=== PATIENT | male | born 1970 | race Caucasian/White ===

== ENCOUNTER 2016-08-26 16:22 | Inpatient (IN) | payer OTHER ==
[2016-08-26 20:05] VITALS: BP 159/88
[2016-08-26 23:20] VITALS: BP 147/87
[2016-08-27 02:43] VITALS: BP 123/71
[2016-08-27 06:30] VITALS: BP 131/78
[2016-08-27 11:29] VITALS: BP 130/82
[2016-08-27 15:01] VITALS: BP 138/88
[2016-08-27 18:48] VITALS: BP 136/78
[2016-08-27 23:00] VITALS: BP 145/93
[2016-08-28 02:56] VITALS: BP 155/94
[2016-08-28 06:22] VITALS: BP 139/83
[2016-08-28] MEDS ORDERED: CIPRO500 M1 PO (08:43)
[2016-08-28] MEDS ORDERED: IBUPROFEN800 MG PO (08:44)
[2016-08-28] MEDS ORDERED: ATIVAN0.5 MG PO (08:45)
[2016-08-28] MEDS ORDERED: ZOFRAN ODT8 M1 PO (08:48)
== END 2016-08-28 09:55 | disposition home or self-care (01) | DRG 440 ==
LOC: ED 16:22 → MED/SURG 19:13
PROVIDERS: ADMIT Nurse Practitioner Family
DX: K85.20 Alcohol induced acute pancreatitis without necrosis or infection (principal); K76.0 Fatty (change of) liver, not elsewhere classified; N28.9 Disorder of kidney and ureter, unspecified; F10.10 Alcohol abuse, uncomplicated; R45.1 Restlessness and agitation; I10 Essential (primary) hypertension; K59.00 Constipation, unspecified
CPT/HCPCS: C9113; J0744; J1650; J1885; J2270; J3010; J3411; J7030; Q9967

== ENCOUNTER → 2016-09-01 | Outpatient (CLI) | payer OTHER ==
[~2016-09-01] MED LIST: ATIVAN0.5 MG PO; CIPRO500 M1 PO; IBUPROFEN800 MG PO; ZOFRAN ODT8 M1 PO
== END ==
LOC: LAB 09:30
DX: K85.20 Alcohol induced acute pancreatitis without necrosis or infection (principal)

== ENCOUNTER → 2017-07-02 | Outpatient (CLI) | payer OTHER ==
[2017-07-02 15:27] LABS: HEMATOCRIT 41.2 % (42.0-52.0); HEMOGLOBIN 14.7 g/dL (13.5-18.0); MEAN CELL VOLUME 96 fl (78-100); MEAN CORPUSCULAR HEMOGLOBIN 34 pg (27-31); MEAN CORPUSCULAR HGB CONC 36 g/dL (33-37); MEAN PLATELET VOLUME 9.9 fl (7.4-10.4); PLATELET COUNT 206 K/mm3 (130-400); RED BLOOD COUNT 4.29 M/mm3 (4.20-5.60); RED CELL DISTRIBUTION WIDTH 12.8 % (11.5-14.5); WHITE BLOOD COUNT 11.1 K/mm3 (4.8-10.8)
[2017-07-02 15:53] LABS: BAND 1 % (0-10); LYMPHOCYTE 13 % (20-51); MONOCYTE 3 % (3-10); NEUTROPHILS 82 % (42-75)
[2017-07-02 17:02] LABS: ERYTHROCYTE SEDIMENTATION RATE 25 mm/hr (0-15)
== END ==
LOC: LAB 14:23
PROVIDERS: Nurse Practitioner Family
DX: M25.521 Pain in right elbow (principal); R22.31 Localized swelling, mass and lump, right upper limb

== ENCOUNTER → 2020-11-27 | Outpatient (CLI) | payer BC ==
[~2020-11-27] MED LIST changes: +ALLOPURINOL300 M1 PO; +DICLOFENAC SOD100 M1 PO; +OMEPRAZOLE40 MG PO
[2020-11-27 18:07] LABS: EOS # 0.1 (0.04-0.40); HEMOGLOBIN 15.1 g/dL (13.5-18.0); LYMPH# 1.2 (1.50-4.00); MEAN CELL VOLUME 97 fl (78-100); MEAN CORPUSCULAR HEMOGLOBIN 33 pg (27-31); MEAN CORPUSCULAR HGB CONC 34 g/dL (33-37); MEAN PLATELET VOLUME 9.2 fl (7.4-10.4); MONO # 0.8 (0.20-0.80); NEU # 5.2 (1.40-6.50); PLATELET COUNT 247 K/mm3 (130-400); RED BLOOD COUNT 4.52 M/mm3 (4.20-5.60); RED CELL DISTRIBUTION WIDTH 12.3 % (11.5-14.5); WHITE BLOOD COUNT 7.3 K/mm3 (4.8-10.8)
[2020-11-27 18:11] LABS: ALBUMIN 4.1 g/dL (3.5-5.0); POTASSIUM 4.3 mmol/L (3.5-5.1)
[2020-11-27 18:12] LABS: CALCIUM 9.9 mg/dL (8.3-10.5)
[2020-11-27 18:14] LABS: TOTAL PROTEIN 7.8 g/dL (6.4-8.3)
[2020-11-27 18:16] LABS: TOTAL BILIRUBIN 0.9 mg/dL (0.2-1.2)
[2020-11-27 19:55] LABS: ERYTHROCYTE SEDIMENTATION RATE 50 mm/hr (0-15)
== END ==
LOC: LAB 16:33
PROVIDERS: Internal Medicine
DX: Z00.00 Encounter for general adult medical examination without abnormal findings (principal)

== ENCOUNTER → 2020-11-30 | Outpatient (CLI) | payer BC ==
[2020-12-03 13:35] LABS: ANA SCREEN with REFLEX Negative (Negative)
[2020-12-04 01:17] LABS: ANTI-CYC CITRULLINATED PEPT AB <20.0 CU (0.0-19.9)
== END ==
LOC: LAB 12:33
PROVIDERS: Internal Medicine
DX: M65.9 Synovitis and tenosynovitis, unspecified (principal); N28.9 Disorder of kidney and ureter, unspecified

== ENCOUNTER → 2020-12-03 | Outpatient (CLI) | payer BC | LOC: RAD 08:23 | DX: M65.9 Synovitis and tenosynovitis, unspecified (principal); N28.1 Cyst of kidney, acquired ==

== ENCOUNTER → 2021-01-17 | Outpatient (CLI) | payer BC | LOC: LAB 12:23 | DX: R97.8 Other abnormal tumor markers (principal); M65.9 Synovitis and tenosynovitis, unspecified ==

== ENCOUNTER 2021-01-20 21:30 | Inpatient (IN) | payer BC ==
[~2021-01-20 21:30] MED LIST changes: -ALLOPURINOL300 M1 PO; -DICLOFENAC SOD100 M1 PO; -OMEPRAZOLE40 MG PO
[2021-01-20 22:21] LABS: BASO # 0.03 (0.02-0.10); EOS # 0.01 (0.04-0.40); EOS % 0.1 % (0.0-4.0); HEMATOCRIT 41.8 % (42.0-52.0); HEMOGLOBIN 15.1 g/dL (13.5-18.0); LYMPH# 0.64 (1.50-4.00); MEAN CELL VOLUME 92 fl (78-100); MEAN CORPUSCULAR HEMOGLOBIN 33 pg (27-31); MEAN CORPUSCULAR HGB CONC 36 g/dL (33-37); MEAN PLATELET VOLUME 8.4 fl (7.4-10.4); MONO # 0.65 (0.20-0.80); NEU # 7.83 (1.40-6.50); PLATELET COUNT 168 K/mm3 (130-400); RED BLOOD COUNT 4.56 M/mm3 (4.20-5.60); RED CELL DISTRIBUTION WIDTH 11.8 % (11.5-14.5); WHITE BLOOD COUNT 9.2 K/mm3 (4.8-10.8)
[2021-01-20 22:29] LABS: ALBUMIN 4.3 g/dL (3.5-5.0)
[2021-01-20 22:30] LABS: POTASSIUM 4.9 mmol/L (3.5-5.1)
[2021-01-20 22:31] LABS: CALCIUM 9.6 mg/dL (8.3-10.5)
[2021-01-20 22:32] LABS: TOTAL PROTEIN 7.5 g/dL (6.4-8.3)
[2021-01-20 22:34] LABS: TOTAL BILIRUBIN 1.1 mg/dL (0.2-1.2)
[2021-01-20] MEDS ORDERED: DICLOFENAC SOD100 M1 PO (23:10)
[2021-01-20] MEDS ORDERED: ALLOPURINOL300 M1 PO (23:10)
[2021-01-20] MEDS ORDERED: OMEPRAZOLE40 MG PO (23:11)
[2021-01-21] VITALS (7 sets, daily range): BP systolic 154–172; BP diastolic 90–97
[2021-01-21 01:08] LABS: URINE WBC 0 /hpf (0-3)
[2021-01-21 01:30] LABS: URINE APPEARANCE CLEAR; URINE BILIRUBIN NEGATIVE (NEGATIVE); URINE BLOOD NEGATIVE (NEGATIVE); URINE COLOR YELLOW; URINE GLUCOSE NEGATIVE (NEGATIVE); URINE KETONE NEGATIVE (NEGATIVE); URINE LEUKOCYTE ESTERASE NEGATIVE (NEGATIVE); URINE NITRATE NEGATIVE (NEGATIVE); URINE PROTEIN(semi-quant) TRACE mg/dL (NEGATIVE); URINE UROBILINOGEN NORMAL (NORMAL)
[2021-01-21 01:31] LABS: URINE MUCUS PRESENT (NOT PRESENT)
[2021-01-21 07:19] LABS: HEMATOCRIT 38.6 % (42.0-52.0); HEMOGLOBIN 13.7 g/dL (13.5-18.0); MEAN PLATELET VOLUME 8.5 fl (7.4-10.4); RED BLOOD COUNT 4.15 M/mm3 (4.20-5.60); RED CELL DISTRIBUTION WIDTH 11.9 % (11.5-14.5); WHITE BLOOD COUNT 6.4 K/mm3 (4.8-10.8)
[2021-01-21 08:17] LABS: SODIUM 130 mmol/L (136-145)
[2021-01-21 08:18] LABS: CALCIUM 8.3 mg/dL (8.3-10.5); GLUCOSE 144 mg/dL (75-110)
[2021-01-21 08:20] LABS: CARBON DIOXIDE 21 mmol/L (22-29)
[2021-01-21 08:28] LABS: LIPASE > 1200 U/L (8-78)
[2021-01-21 13:48] LABS: HEMATOCRIT 41.1 % (42.0-52.0); HEMOGLOBIN 14.5 g/dL (13.5-18.0); MEAN CELL VOLUME 94 fl (78-100); MEAN CORPUSCULAR HEMOGLOBIN 33 pg (27-31); MEAN CORPUSCULAR HGB CONC 35 g/dL (33-37); MEAN PLATELET VOLUME 8.5 fl (7.4-10.4); PLATELET COUNT 126 K/mm3 (130-400); RED BLOOD COUNT 4.38 M/mm3 (4.20-5.60); RED CELL DISTRIBUTION WIDTH 11.9 % (11.5-14.5); WHITE BLOOD COUNT 6.5 K/mm3 (4.8-10.8)
[2021-01-21 14:02] LABS: ALBUMIN 3.6 g/dL (3.5-5.0)
[2021-01-21 14:03] LABS: POTASSIUM 4.2 mmol/L (3.5-5.1)
[2021-01-21 14:04] LABS: CALCIUM 8.3 mg/dL (8.3-10.5)
[2021-01-21 14:05] LABS: TOTAL PROTEIN 6.4 g/dL (6.4-8.3)
[2021-01-21 14:07] LABS: TOTAL BILIRUBIN 1.6 mg/dL (0.2-1.2)
[2021-01-21 14:53] LABS: LYMPHOCYTE 4 % (20-51); MONOCYTE 4 % (3-10); NEUTROPHILS 91 % (42-75)
== END 2021-01-21 18:28 | disposition short-term general hospital (02) | DRG 640 ==
LOC: ED 21:30 → MED/SURG 01-21 01:31
PROVIDERS: Family Medicine; Nurse Practitioner; ADMIT Internal Medicine
DX: E87.1 Hypo-osmolality and hyponatremia (principal); K85.90 Acute pancreatitis without necrosis or infection, unspecified; K76.0 Fatty (change of) liver, not elsewhere classified; K70.9 Alcoholic liver disease, unspecified; F10.10 Alcohol abuse, uncomplicated; M10.9 Gout, unspecified; F17.220 Nicotine dependence, chewing tobacco, uncomplicated; Z20.822 Contact with and (suspected) exposure to COVID-19; Z88.0 Allergy status to penicillin
CPT/HCPCS: C9113; J2060; J2270; J3010; J3411; J7030; Q9967

== ENCOUNTER → 2021-07-31 | Outpatient (CLI) | payer BC ==
[~2021-07-31] MED LIST changes: +ALLOPURINOL300 M1 PO; +DICLOFENAC SOD100 M1 PO; +OMEPRAZOLE40 MG PO
[2021-07-31 15:17] LABS: HEMOGLOBIN 15.1 g/dL (13.5-18.0); MEAN PLATELET VOLUME 8.7 fl (7.4-10.4); RED BLOOD COUNT 4.48 M/mm3 (4.20-5.60); RED CELL DISTRIBUTION WIDTH 12.1 % (11.5-14.5); WHITE BLOOD COUNT 6.5 K/mm3 (4.8-10.8)
[2021-07-31 15:28] LABS: ALBUMIN 4.4 g/dL (3.5-5.0)
[2021-07-31 15:29] LABS: POTASSIUM 4.8 mmol/L (3.5-5.1)
[2021-07-31 15:30] LABS: CALCIUM 10.1 mg/dL (8.3-10.5)
[2021-07-31 15:31] LABS: TOTAL PROTEIN 7.8 g/dL (6.4-8.3)
[2021-07-31 15:33] LABS: TOTAL BILIRUBIN 0.5 mg/dL (0.2-1.2)
== END ==
LOC: LAB 15:07
PROVIDERS: Urology
DX: C61 Malignant neoplasm of prostate (principal)

== ENCOUNTER → 2021-10-09 | Outpatient (CLI) | payer BC | LOC: LAB 14:52 | DX: C61 Malignant neoplasm of prostate (principal) ==

== ENCOUNTER → 2023-09-29 | Outpatient (CLI) | payer BC ==
[2023-09-29 11:22] LABS: BASO # 0.01 K/mm3 (0.02-0.10); EOS # 0.19 K/mm3 (0.04-0.40); EOS % 4.3 % (0.0-4.0); HEMOGLOBIN 14.9 g/dL (13.5-18.0); LYMPH# 1.09 K/mm3 (1.50-4.00); MEAN CELL VOLUME 97 fl (78-100); MEAN CORPUSCULAR HEMOGLOBIN 34 pg (27-31); MEAN CORPUSCULAR HGB CONC 35 g/dL (33-37); MEAN PLATELET VOLUME 8.5 fl (7.4-10.4); MONO # 0.37 K/mm3 (0.20-0.80); NEU # 2.75 K/mm3 (1.40-6.50); PLATELET COUNT 240 K/mm3 (130-400); RED BLOOD COUNT 4.42 M/mm3 (4.20-5.60); RED CELL DISTRIBUTION WIDTH 11.9 % (11.5-14.5); WHITE BLOOD COUNT 4.4 K/mm3 (4.8-10.8)
[2023-09-29 11:27] LABS: ALBUMIN 4.2 g/dL (3.5-5.0); SODIUM 138 mmol/L (136-145)
[2023-09-29 11:29] LABS: CALCIUM 9.8 mg/dL (8.3-10.5)
[2023-09-29 11:30] LABS: GLUCOSE 128 mg/dL (75-110); TOTAL PROTEIN 7.4 g/dL (6.4-8.3)
[2023-09-29 11:31] LABS: CARBON DIOXIDE 27 mmol/L (22-29)
[2023-09-29 11:32] LABS: TOTAL BILIRUBIN 0.5 mg/dL (0.2-1.2)
[2023-09-29 11:35] LABS: AST-SGOT 27 U/L (5-34)
[2023-09-29 11:36] LABS: ALT/SGPT 19 U/L (0-55); MAGNESIUM 1.99 mg/dL (1.60-2.60)
[2023-10-01 23:26] LABS: ANTI-CYC CITRULLINATED PEPT AB 9 units (0-19)
== END ==
LOC: LAB 11:03
PROVIDERS: Internal Medicine
DX: Z12.5 Encounter for screening for malignant neoplasm of prostate (principal); I10 Essential (primary) hypertension; M10.9 Gout, unspecified; K22.2 Esophageal obstruction; M19.90 Unspecified osteoarthritis, unspecified site; R21 Rash and other nonspecific skin eruption